=== PATIENT | male | born 1965 | race Caucasian/White ===

== ENCOUNTER 2020-01-09 18:25 | Emergency (ER) | payer OTHER ==
--- NOTE | 2020-01-09 19:01 | ED.PDOC ---
History of Present Illness - General Chief Complaint: General Stated Complaint: dehydration Time Seen by Provider: 01/09/20 18:40 Source: patient, RN notes reviewed, Vital Signs reviewed, family Exam Limitations: no limitations - History of Present Illness Timing/Duration: 4-6 hours Improving Factors: cold therapy Associated Symptoms: syncope Allergies/Adverse Reactions: Allergies NO KNOWN ALLERGY Allergy (Verified 01/09/20 18:36) Home Medications: Ambulatory Orders Atorvastatin Calcium PO DAILY 01/09/20 Olmesartan Medoxomil-Hydrochlo [Benicar Hct 20-12.5 mg] 1 tab PO DAILY 01/09/20 Review of Systems - Review of Systems Constitutional: States: weakness. Denies: chills, diaphoresis, fever EENTM: States: see HPI. Denies: eye pain, double vision, nose congestion, throat pain Respiratory: Denies: cough, short of breath, wheezing Cardiology: States: syncope. Denies: chest pain, palpitations Gastrointestinal/Abdominal: Denies: abdominal pain, constipation, diarrhea, vomiting Genitourinary: States: other - incontinence during syncopal episode. Denies: dysuria, frequency Musculoskeletal: Denies: back pain, joint pain, joint swelling, muscle pain, neck pain Neurological: Denies: anxiety, headache, numbness, paresthesia, seizure Endocrine: Denies: excessive sweating, flushing Past Medical History (General) - Patient Medical History Hx Stroke: No Hx Congestive Heart Failure: No Hx Hypertension: Yes Hx Diabetes: No Surgical History: tonsillectomy - Vaccination History Hx Influenza Vaccination: Yes Hx Pneumococcal Vaccination: Yes - Social History Hx Tobacco Use: Yes Family Medical History - Family History Father Family History: Unknown Living Status: Unknown Physical Exam - Physical Exam General Appearance: Alert, Comfortable, Well Developed, Well Nourished Eye Exam: bilateral normal Ears, Nose, Throat: hearing grossly normal, normal ENT inspection, other - mucus membranes slightly dry Neck: non-tender, full range of motion, supple, normal inspection Respiratory: chest non-tender, lungs clear, normal breath sounds, no respiratory distress Cardiovascular/Chest: regular rate, rhythm, no edema, no JVD, no murmur Gastrointestinal/Abdominal: normal bowel sounds, non tender, soft Back Exam: normal inspection, no CVA tenderness, no vertebral tenderness Extremity: normal range of motion, non-tender, normal inspection, no pedal edema Neurologic: normal mood/affect, oriented x 3 Skin Exam: normal color, warm/dry Progress - Progress Progress: 01/09/20 18:56 54 y/o male had two syncopal episodes after a day in the [facility] and after drinking alcohol He was with a friend to fish in a tank, sitting on a 4 escalante and slumped, it took and then he passed out again. It took 1-2 minutes of sternal rub to bring him around. He and his have spent the last two weeks in their cabin and have been drinking at least some everyday. NO fever, cough, chest pain, or headache. He has had 2 other episodes similar to this after which he saw his doctor and says "he got a clean bill of health" He did have a feeling something wasn't right right before he lost consciousness. 01/09/20 20:04 patient is feeling much better and is hungry. 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 Copy, Patient Portal Self Enrollment Instructions: Dehydration, Adult (DC) Home Medications: Ambulatory Orders Atorvastatin Calcium PO DAILY 01/09/20 Olmesartan Medoxomil-Hydrochlo [Benicar Hct 20-12.5 mg] 1 tab PO DAILY 01/09/20
[2020-01-09] MEDS ORDERED: SODIUM CHLORIDE 0.9% 1000ML 2,000 ML IVS ONE (19:06)
--- NOTE | 2020-01-09 19:26 | RAD ---
EXAM: Chest,1 View CLINICAL INDICATION: 54-year-old male status post syncope. TECHNIQUE: Single view, AP portable chest was obtained. COMPARISON: None. FINDINGS: Unremarkable cardiac and mediastinal silhouette. Heart size is normal. Lungs are clear without focal opacity, pneumothorax or pleural effusions. Deformity of the RIGHT clavicle and posterior LEFT upper ribs compatible with sequela of prior trauma. The visualized bones are otherwise within normal limits. IMPRESSION: No acute cardiopulmonary abnormalities. Electronically signed by: Dayana Johnson MD 01/09/2020 7:24 PM CDT
[2020-01-09 21:51] VITALS: BP 151/94; TEMP 97.5; O2SAT 98
== END 2020-01-09 20:50 | disposition home or self-care (01) ==
LOC: ER 18:25
DX: R55 Syncope and collapse (principal); E86.0 Dehydration
CPT/HCPCS: 71045; 80320; 85025; 93005; J7030